=== PATIENT | female | born 1940 | race Caucasian/White ===

== ENCOUNTER 2023-01-28 16:28 | Emergency (ER) | payer MEDICARE, OTHER ==
[~2023-01-28] VITALS: Ht 162.6 cm; Wt 64.4 kg
[2023-01-28] MEDS ORDERED: LIDOCAINE 5% (PATCH) 1 EA PATCH TP ONE ×2 (18:00→18:15)
--- NOTE | 2023-01-28 19:55 | NUR ---
BIBPA FROM [facility] FOR RIGHT HIP PAIN S/P WITNESSED GLF, NO LOC
[2023-01-28] MEDS ORDERED: LIDO30AD10 TP (20:55)
--- NOTE | 2023-01-28 22:00 | NUR ---
[facility] ETA 10-15 MINUTES
[2023-01-28 22:27] VITALS: BP 148/86
== END 2023-01-28 22:41 ==
LOC: ER 16:30
DX: S20.211A Contusion of right front wall of thorax, initial encounter (principal); I10 Essential (primary) hypertension; Z79.899 Other long term (current) drug therapy; W20.8XXA Other cause of strike by thrown, projected or falling object, initial encounter; Y93.89 Activity, other specified; Y92.89 Other specified places as the place of occurrence of the external cause; Y99.8 Other external cause status
CPT/HCPCS: 71100-TC; 72170-TC; 72192-TC

== ENCOUNTER 2024-02-15 18:42 | Emergency (ER) | payer MEDICARE, OTHER ==
[~2024-02-15] VITALS: Ht 157.5 cm; Wt 58.1 kg
[~2024-02-15 18:42] MED LIST: LIDO30AD10 TP
[2024-02-15 19:04] VITALS: BP 133/68; TEMP 98.4; O2SAT 97
[2024-02-15] MEDS ORDERED: SULF1TAB48 PO (22:14)
== END 2024-02-15 22:19 ==
LOC: ER 18:54
DX: L03.115 Cellulitis of right lower limb (principal); I10 Essential (primary) hypertension; Z79.899 Other long term (current) drug therapy